=== PATIENT | male | born 1965 | race Two or more races ===

== ENCOUNTER 2017-04-26 13:50 | Emergency (ER) | payer OTHER ==
[~2017-04-26] VITALS: Ht 175.3 cm; Wt 95.3 kg
--- NOTE | 2017-04-26 14:10 | PHYS DOC ---
Past Medical History Past Medical History: No Pertinent History Past Surgical History: Other Additional Past Surgical Histo: lypoma removal R elbow Alcohol Use: Occasionally Drug Use: None Adult General Chief Complaint Chief Complaint: LACERATION/AVULSION HPI HPI Patient is a 51 year old male who presents with right thigh laceration. 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 Review of Systems Review of Systems Constitutional: Denies fever or chills [] Musculoskeletal: Denies back pain or joint pain [] Integument: Right thigh laceration Neurologic: Denies headache, focal weakness or sensory changes [] Endocrine: Denies polyuria or polydipsia [] Current Medications Current Medications Current Medications Medications (Trade) Dose Ordered Sig/Holly Start Time Stop Time Status Last Admin Dose Admin Diphtheria/ Tetanus/Acell Pertussis (Boostrix) 0.5 ml ONCE ONCE 04/26/17 14:45 04/26/17 14:46 04/26/17 14:35 0.5 ML Lidocaine/Sodium Bicarbonate (Buffered Lidocaine 1%) 20 ml 1X ONCE 04/26/17 14:45 04/26/17 14:46 04/26/17 14:35 20 ML Allergies Allergies Allergies Coded Allergies Type Severity Reaction Last Updated Verified No Known Drug Allergies 04/26/17 No Physical Exam Physical Exam Constitutional: Well developed, well nourished, no acute distress, non-toxic appearance. [] Abdomen: Bowel sounds normal, soft, no tenderness, no masses, no pulsatile masses. [] Skin: Right proximal thigh with a laceration approximately 4 cm long on the ventral aspect. No obvious tendon involvement. Full range of motion to the right lower extremity. +2 right pedal pulse. Cap refill less than 2 seconds the right lower extremity. Sensation intact to the right lower extremity. Back: No tenderness, no CVA tenderness. [] Extremities: No tenderness, no cyanosis, no clubbing, ROM intact, no edema. [] Neurologic: Alert and oriented X 3, normal motor function, normal sensory function, no focal deficits noted. [] Psychologic: Affect normal, judgement normal, mood normal. [] Current Patient Data Vital Signs Vital Signs Date Time Temp Pulse Resp B/P (MAP) Pulse Ox O2 Delivery O2 Flow Rate FiO2 04/26/17 14:36 98 18 158/76 (103) 98 Room Air 04/26/17 14:02 98.5 98.5 EKG EKG [] Radiology/Procedures Radiology/Procedures Indication: [] Right thigh laceration Procedure: Patient was placed appropriate position and anesthesia around the laceration was 1% buffered lidocaine. The area was explored for foreign objects , none was found. The laceration was cleaned with the 100 ML of normal saline and then Betadine. The laceration was closed with 7 interrupted sutures using 4. 0 Ethilon. The area was covered with nonstick dressing. Total repaired wound length: Approximately 4 cm long Other Items: none The patient tolerated the procedure well Complications: none Course & Med Decision Making Course & Med Decision Making Pertinent Labs and Imaging studies reviewed. (See chart for details) Patient has right thigh laceration. The laceration was closed by me as noted in procedures. He was provided wound care instructions as well as return precautions. He was given tetanus in the ED. His blood pressure was elevated in the ED 158/76. Patient denies any history of hypertension. He states he saw a primary care doctor 3 years ago. Patient does not have any neurological / cardiac symptoms. I highly recommended he follows up with a PCP which we provided. Dragon Disclaimer Dragon Disclaimer This electronic medical record was generated, in whole or in part, using a voice recognition dictation system. Departure Departure Impression: Primary Impression: Laceration of right lower extremity Additional Impression: Hypertension Disposition: 01 HOME, SELF-CARE Condition: STABLE Referrals: NO PCP (PCP) Follow-up with your primary care doctor or the emergency room in 7-10 days for suture removal. Please follow-up with a primary care doctor and have them recheck your blood pressure. Patient Instructions: Hypertension, Laceration Care, Adult Additional Instructions: You were seen for right lower extremity laceration. Keep the area clean and dry. You can shower. Apply Neosporin to the area twice a day. Monitor the area for signs and symptoms of infection including increased redness warmth or odor drainage from the area and return to the ED if they occur. We highly recommend you follow-up with the primary care doctor because your blood pressure was elevated in the emergency room. Problem Qualifiers Primary Impression: Laceration of right lower extremity Encounter type: initial encounter Qualified Codes: S81.811A - Laceration without foreign body, right lower leg, initial encounter Additional Impression: Hypertension Hypertension type: unspecified secondary hypertension Qualified Codes: I15.9 - Secondary hypertension, unspecified HAYLEY ROMO APRN Apr 26, 2017 14:10
[2017-04-26 14:36] VITALS: BP 158/76
[2017-04-26] MEDS ORDERED: LIDOCAINE 1% / SOD BICARB 8.4% 20 ML VIAL. IJ ONE (14:45)
[2017-04-26] MEDS ORDERED: DIPHTH,PERTUSS(ACELL),TET TOX 0.5 ML DISP.SYRIN. VAX IM ONE (14:45)
== END 2017-04-26 14:44 | disposition home or self-care (01) ==
LOC: ER 13:50
DX: S71.111A Laceration without foreign body, right thigh, initial encounter (principal); I15.9 Secondary hypertension, unspecified; W26.8XXA Contact with other sharp object(s), not elsewhere classified, initial encounter; Y93.89 Activity, other specified; Y92.89 Other specified places as the place of occurrence of the external cause; Y99.8 Other external cause status
CPT/HCPCS: 12002; 90471; 90715; 99283-25